=== PATIENT | male | born 1965 | race Hispanic/Latino ===

== ENCOUNTER → 2020-10-14 | Outpatient (CLI) | payer OTHER | LOC: WCC 12:55 | PROVIDERS: ATTEND Family Medicine Adult Medicine | DX: E11.42 Type 2 diabetes mellitus with diabetic polyneuropathy (principal); Y83.8 Other surgical procedures as the cause of abnormal reaction of the patient, or of later complication, without mention of misadventure at the time of the procedure; S21.201A Unspecified open wound of right back wall of thorax without penetration into thoracic cavity, initial encounter; L02.232 Carbuncle of back [any part, except buttock and flank]; R60.0 Localized edema; I10 Essential (primary) hypertension; H54.8 Legal blindness, as defined in USA; E78.5 Hyperlipidemia, unspecified | CPT/HCPCS: 36415; 82948 ==

== ENCOUNTER → 2020-10-22 | Outpatient (CLI) | payer OTHER | LOC: RAD 09:22 | PROVIDERS: ATTEND Family Medicine Adult Medicine | DX: R60.0 Localized edema (principal); I87.2 Venous insufficiency (chronic) (peripheral); I73.9 Peripheral vascular disease, unspecified; I87.1 Compression of vein | CPT/HCPCS: 93925; 93970 ==

== ENCOUNTER → 2020-10-26 | Outpatient (CLI) | payer OTHER ==
[~2020-10-26] MED LIST: LIDOCAINE VISC 2% SOLN 15 ML UDC ONE
== END ==
LOC: WCC 10:11
PROVIDERS: ATTEND Family Medicine Adult Medicine
DX: E11.42 Type 2 diabetes mellitus with diabetic polyneuropathy (principal); Y83.8 Other surgical procedures as the cause of abnormal reaction of the patient, or of later complication, without mention of misadventure at the time of the procedure; S21.201A Unspecified open wound of right back wall of thorax without penetration into thoracic cavity, initial encounter; I87.2 Venous insufficiency (chronic) (peripheral); I79.8 Other disorders of arteries, arterioles and capillaries in diseases classified elsewhere; R60.0 Localized edema; L02.232 Carbuncle of back [any part, except buttock and flank]; I10 Essential (primary) hypertension; H54.8 Legal blindness, as defined in USA; E78.5 Hyperlipidemia, unspecified
CPT/HCPCS: 36415; 82948

== ENCOUNTER → 2020-10-29 | Outpatient (CLI) | payer OTHER | LOC: WCC 13:35 | PROVIDERS: ATTEND Family Medicine Adult Medicine | DX: E11.42 Type 2 diabetes mellitus with diabetic polyneuropathy (principal); Y83.8 Other surgical procedures as the cause of abnormal reaction of the patient, or of later complication, without mention of misadventure at the time of the procedure; R60.0 Localized edema; S21.201A Unspecified open wound of right back wall of thorax without penetration into thoracic cavity, initial encounter; I87.2 Venous insufficiency (chronic) (peripheral); I79.8 Other disorders of arteries, arterioles and capillaries in diseases classified elsewhere; L02.232 Carbuncle of back [any part, except buttock and flank]; H54.8 Legal blindness, as defined in USA; I10 Essential (primary) hypertension; E78.5 Hyperlipidemia, unspecified ==

== ENCOUNTER → 2020-11-02 | Outpatient (CLI) | payer OTHER | LOC: WCC 08:52 | PROVIDERS: ATTEND Family Medicine Adult Medicine | DX: E11.42 Type 2 diabetes mellitus with diabetic polyneuropathy (principal); Y83.8 Other surgical procedures as the cause of abnormal reaction of the patient, or of later complication, without mention of misadventure at the time of the procedure; S21.201A Unspecified open wound of right back wall of thorax without penetration into thoracic cavity, initial encounter; I79.8 Other disorders of arteries, arterioles and capillaries in diseases classified elsewhere; I87.2 Venous insufficiency (chronic) (peripheral); R60.0 Localized edema; L02.232 Carbuncle of back [any part, except buttock and flank]; I10 Essential (primary) hypertension; H54.8 Legal blindness, as defined in USA; E78.5 Hyperlipidemia, unspecified ==

== ENCOUNTER → 2020-11-05 | Outpatient (CLI) | payer OTHER | LOC: WCC 11:29 | PROVIDERS: ATTEND Family Medicine Adult Medicine | DX: E11.42 Type 2 diabetes mellitus with diabetic polyneuropathy (principal); Y83.8 Other surgical procedures as the cause of abnormal reaction of the patient, or of later complication, without mention of misadventure at the time of the procedure; S21.201A Unspecified open wound of right back wall of thorax without penetration into thoracic cavity, initial encounter; I79.8 Other disorders of arteries, arterioles and capillaries in diseases classified elsewhere; I87.2 Venous insufficiency (chronic) (peripheral); L02.232 Carbuncle of back [any part, except buttock and flank]; I10 Essential (primary) hypertension; H54.8 Legal blindness, as defined in USA; E78.5 Hyperlipidemia, unspecified ==

== ENCOUNTER → 2020-11-09 | Outpatient (CLI) | payer OTHER | LOC: WCC 08:50 | PROVIDERS: ATTEND Family Medicine Adult Medicine | DX: E11.42 Type 2 diabetes mellitus with diabetic polyneuropathy (principal); Y83.8 Other surgical procedures as the cause of abnormal reaction of the patient, or of later complication, without mention of misadventure at the time of the procedure; S21.201A Unspecified open wound of right back wall of thorax without penetration into thoracic cavity, initial encounter; I87.2 Venous insufficiency (chronic) (peripheral); L02.232 Carbuncle of back [any part, except buttock and flank]; I79.8 Other disorders of arteries, arterioles and capillaries in diseases classified elsewhere; I10 Essential (primary) hypertension; H54.8 Legal blindness, as defined in USA; E78.5 Hyperlipidemia, unspecified ==

== ENCOUNTER → 2020-11-12 | Outpatient (CLI) | payer OTHER | LOC: WCC 14:34 | PROVIDERS: ATTEND Family Medicine Adult Medicine | DX: E11.42 Type 2 diabetes mellitus with diabetic polyneuropathy (principal); Y83.8 Other surgical procedures as the cause of abnormal reaction of the patient, or of later complication, without mention of misadventure at the time of the procedure; S21.201A Unspecified open wound of right back wall of thorax without penetration into thoracic cavity, initial encounter; I87.2 Venous insufficiency (chronic) (peripheral); I79.8 Other disorders of arteries, arterioles and capillaries in diseases classified elsewhere; L02.232 Carbuncle of back [any part, except buttock and flank]; I10 Essential (primary) hypertension; H54.8 Legal blindness, as defined in USA; E78.5 Hyperlipidemia, unspecified ==

== ENCOUNTER → 2020-11-16 | Outpatient (CLI) | payer OTHER | LOC: WCC 10:19 | PROVIDERS: ATTEND Family Medicine Adult Medicine | DX: E11.42 Type 2 diabetes mellitus with diabetic polyneuropathy (principal); Y83.8 Other surgical procedures as the cause of abnormal reaction of the patient, or of later complication, without mention of misadventure at the time of the procedure; S21.201A Unspecified open wound of right back wall of thorax without penetration into thoracic cavity, initial encounter; I79.8 Other disorders of arteries, arterioles and capillaries in diseases classified elsewhere; I87.2 Venous insufficiency (chronic) (peripheral); L02.232 Carbuncle of back [any part, except buttock and flank]; I10 Essential (primary) hypertension; H54.8 Legal blindness, as defined in USA; E78.5 Hyperlipidemia, unspecified ==

== ENCOUNTER → 2020-11-19 | Outpatient (CLI) | payer OTHER | LOC: WCC 15:32 | PROVIDERS: ATTEND Family Medicine Adult Medicine | DX: E11.42 Type 2 diabetes mellitus with diabetic polyneuropathy (principal); Y83.8 Other surgical procedures as the cause of abnormal reaction of the patient, or of later complication, without mention of misadventure at the time of the procedure; S21.201A Unspecified open wound of right back wall of thorax without penetration into thoracic cavity, initial encounter; I87.2 Venous insufficiency (chronic) (peripheral); I79.8 Other disorders of arteries, arterioles and capillaries in diseases classified elsewhere; L02.232 Carbuncle of back [any part, except buttock and flank]; I10 Essential (primary) hypertension; H54.8 Legal blindness, as defined in USA; E78.5 Hyperlipidemia, unspecified ==

== ENCOUNTER → 2020-11-23 | Outpatient (CLI) | payer OTHER | LOC: WCC 10:43 | PROVIDERS: ATTEND Family Medicine Adult Medicine | DX: E11.42 Type 2 diabetes mellitus with diabetic polyneuropathy (principal); Y83.8 Other surgical procedures as the cause of abnormal reaction of the patient, or of later complication, without mention of misadventure at the time of the procedure; S21.201A Unspecified open wound of right back wall of thorax without penetration into thoracic cavity, initial encounter; I87.2 Venous insufficiency (chronic) (peripheral); I79.8 Other disorders of arteries, arterioles and capillaries in diseases classified elsewhere; L02.232 Carbuncle of back [any part, except buttock and flank]; I10 Essential (primary) hypertension; E78.5 Hyperlipidemia, unspecified; H54.8 Legal blindness, as defined in USA ==

== ENCOUNTER → 2020-11-26 | Outpatient (CLI) | payer OTHER | LOC: WCC 13:29 | PROVIDERS: ATTEND Family Medicine Adult Medicine | DX: E11.42 Type 2 diabetes mellitus with diabetic polyneuropathy (principal); Y83.8 Other surgical procedures as the cause of abnormal reaction of the patient, or of later complication, without mention of misadventure at the time of the procedure; S21.201A Unspecified open wound of right back wall of thorax without penetration into thoracic cavity, initial encounter; I87.2 Venous insufficiency (chronic) (peripheral); I79.8 Other disorders of arteries, arterioles and capillaries in diseases classified elsewhere; L02.232 Carbuncle of back [any part, except buttock and flank]; I10 Essential (primary) hypertension; E78.5 Hyperlipidemia, unspecified; H54.8 Legal blindness, as defined in USA ==

== ENCOUNTER → 2020-11-30 | Outpatient (CLI) | payer OTHER | LOC: WCC 09:59 | PROVIDERS: ATTEND Family Medicine Adult Medicine | DX: E11.42 Type 2 diabetes mellitus with diabetic polyneuropathy (principal); Y83.8 Other surgical procedures as the cause of abnormal reaction of the patient, or of later complication, without mention of misadventure at the time of the procedure; S21.201A Unspecified open wound of right back wall of thorax without penetration into thoracic cavity, initial encounter; I79.8 Other disorders of arteries, arterioles and capillaries in diseases classified elsewhere; I87.2 Venous insufficiency (chronic) (peripheral); L02.232 Carbuncle of back [any part, except buttock and flank]; I10 Essential (primary) hypertension; E78.5 Hyperlipidemia, unspecified; H54.8 Legal blindness, as defined in USA | CPT/HCPCS: 87071; 87075; 87186; 87205 ==

== ENCOUNTER → 2020-12-03 | Outpatient (CLI) | payer OTHER | LOC: WCC 11:06 | PROVIDERS: ATTEND Family Medicine Adult Medicine | DX: S21.201A Unspecified open wound of right back wall of thorax without penetration into thoracic cavity, initial encounter (principal); Y83.8 Other surgical procedures as the cause of abnormal reaction of the patient, or of later complication, without mention of misadventure at the time of the procedure; E11.42 Type 2 diabetes mellitus with diabetic polyneuropathy; I87.2 Venous insufficiency (chronic) (peripheral); I79.8 Other disorders of arteries, arterioles and capillaries in diseases classified elsewhere; L02.232 Carbuncle of back [any part, except buttock and flank]; I10 Essential (primary) hypertension; E78.5 Hyperlipidemia, unspecified; H54.8 Legal blindness, as defined in USA ==

== ENCOUNTER → 2020-12-07 | Outpatient (CLI) | payer OTHER | LOC: WCC 09:34 | PROVIDERS: ATTEND Family Medicine Adult Medicine | DX: E11.42 Type 2 diabetes mellitus with diabetic polyneuropathy (principal); Y83.8 Other surgical procedures as the cause of abnormal reaction of the patient, or of later complication, without mention of misadventure at the time of the procedure; S21.201A Unspecified open wound of right back wall of thorax without penetration into thoracic cavity, initial encounter; I87.2 Venous insufficiency (chronic) (peripheral); I79.8 Other disorders of arteries, arterioles and capillaries in diseases classified elsewhere; L02.232 Carbuncle of back [any part, except buttock and flank]; B96.89 Other specified bacterial agents as the cause of diseases classified elsewhere; I10 Essential (primary) hypertension; E78.5 Hyperlipidemia, unspecified; H54.8 Legal blindness, as defined in USA ==

== ENCOUNTER → 2020-12-10 | Outpatient (CLI) | payer OTHER | LOC: WCC 09:18 | PROVIDERS: ATTEND Family Medicine Adult Medicine | DX: E11.42 Type 2 diabetes mellitus with diabetic polyneuropathy (principal); Y83.8 Other surgical procedures as the cause of abnormal reaction of the patient, or of later complication, without mention of misadventure at the time of the procedure; S21.201A Unspecified open wound of right back wall of thorax without penetration into thoracic cavity, initial encounter; I87.2 Venous insufficiency (chronic) (peripheral); I79.8 Other disorders of arteries, arterioles and capillaries in diseases classified elsewhere; I10 Essential (primary) hypertension; E78.5 Hyperlipidemia, unspecified; L02.232 Carbuncle of back [any part, except buttock and flank]; B96.89 Other specified bacterial agents as the cause of diseases classified elsewhere; H54.8 Legal blindness, as defined in USA ==

== ENCOUNTER → 2020-12-14 | Outpatient (CLI) | payer OTHER | LOC: WCC 09:56 | PROVIDERS: ATTEND Family Medicine Adult Medicine | DX: E11.42 Type 2 diabetes mellitus with diabetic polyneuropathy (principal); Y83.8 Other surgical procedures as the cause of abnormal reaction of the patient, or of later complication, without mention of misadventure at the time of the procedure; S21.201A Unspecified open wound of right back wall of thorax without penetration into thoracic cavity, initial encounter; I87.2 Venous insufficiency (chronic) (peripheral); I79.8 Other disorders of arteries, arterioles and capillaries in diseases classified elsewhere; L02.232 Carbuncle of back [any part, except buttock and flank]; B96.89 Other specified bacterial agents as the cause of diseases classified elsewhere; I10 Essential (primary) hypertension; E78.5 Hyperlipidemia, unspecified; H54.8 Legal blindness, as defined in USA ==

== ENCOUNTER → 2020-12-17 | Outpatient (CLI) | payer OTHER | LOC: WCC 09:15 | PROVIDERS: ATTEND Family Medicine Adult Medicine | DX: E11.42 Type 2 diabetes mellitus with diabetic polyneuropathy (principal); Y83.8 Other surgical procedures as the cause of abnormal reaction of the patient, or of later complication, without mention of misadventure at the time of the procedure; S21.201A Unspecified open wound of right back wall of thorax without penetration into thoracic cavity, initial encounter; I79.8 Other disorders of arteries, arterioles and capillaries in diseases classified elsewhere; I87.2 Venous insufficiency (chronic) (peripheral); L02.232 Carbuncle of back [any part, except buttock and flank]; I10 Essential (primary) hypertension; E78.5 Hyperlipidemia, unspecified; B96.89 Other specified bacterial agents as the cause of diseases classified elsewhere; H54.8 Legal blindness, as defined in USA ==

== ENCOUNTER → 2020-12-21 | Outpatient (CLI) | payer OTHER | LOC: WCC 09:25 | PROVIDERS: ATTEND Family Medicine Adult Medicine | DX: E11.42 Type 2 diabetes mellitus with diabetic polyneuropathy (principal); Y83.8 Other surgical procedures as the cause of abnormal reaction of the patient, or of later complication, without mention of misadventure at the time of the procedure; S21.201A Unspecified open wound of right back wall of thorax without penetration into thoracic cavity, initial encounter; I79.8 Other disorders of arteries, arterioles and capillaries in diseases classified elsewhere; I87.2 Venous insufficiency (chronic) (peripheral); L02.232 Carbuncle of back [any part, except buttock and flank]; I10 Essential (primary) hypertension; B96.89 Other specified bacterial agents as the cause of diseases classified elsewhere; H54.8 Legal blindness, as defined in USA; E78.5 Hyperlipidemia, unspecified ==

== ENCOUNTER → 2020-12-24 | Outpatient (CLI) | payer OTHER | LOC: WCC 09:50 | PROVIDERS: ATTEND Family Medicine Adult Medicine | DX: E11.42 Type 2 diabetes mellitus with diabetic polyneuropathy (principal); Y83.8 Other surgical procedures as the cause of abnormal reaction of the patient, or of later complication, without mention of misadventure at the time of the procedure; S21.201A Unspecified open wound of right back wall of thorax without penetration into thoracic cavity, initial encounter; I79.8 Other disorders of arteries, arterioles and capillaries in diseases classified elsewhere; I87.2 Venous insufficiency (chronic) (peripheral); L02.232 Carbuncle of back [any part, except buttock and flank]; B96.89 Other specified bacterial agents as the cause of diseases classified elsewhere; I10 Essential (primary) hypertension; E78.5 Hyperlipidemia, unspecified; H54.8 Legal blindness, as defined in USA ==

== ENCOUNTER → 2020-12-28 | Outpatient (CLI) | payer OTHER | LOC: WCC 11:43 | PROVIDERS: ATTEND Family Medicine Adult Medicine | DX: E11.42 Type 2 diabetes mellitus with diabetic polyneuropathy (principal); Y83.8 Other surgical procedures as the cause of abnormal reaction of the patient, or of later complication, without mention of misadventure at the time of the procedure; S21.201A Unspecified open wound of right back wall of thorax without penetration into thoracic cavity, initial encounter; I79.8 Other disorders of arteries, arterioles and capillaries in diseases classified elsewhere; I87.2 Venous insufficiency (chronic) (peripheral); L02.232 Carbuncle of back [any part, except buttock and flank]; I10 Essential (primary) hypertension; E78.5 Hyperlipidemia, unspecified; H54.8 Legal blindness, as defined in USA; B96.89 Other specified bacterial agents as the cause of diseases classified elsewhere ==

== ENCOUNTER → 2020-12-31 | Outpatient (CLI) | payer OTHER | LOC: WCC 09:26 | PROVIDERS: ATTEND Family Medicine Adult Medicine | DX: E11.42 Type 2 diabetes mellitus with diabetic polyneuropathy (principal); Y83.8 Other surgical procedures as the cause of abnormal reaction of the patient, or of later complication, without mention of misadventure at the time of the procedure; S21.201A Unspecified open wound of right back wall of thorax without penetration into thoracic cavity, initial encounter; I79.8 Other disorders of arteries, arterioles and capillaries in diseases classified elsewhere; I87.2 Venous insufficiency (chronic) (peripheral); L02.232 Carbuncle of back [any part, except buttock and flank]; I10 Essential (primary) hypertension; E78.5 Hyperlipidemia, unspecified; B96.89 Other specified bacterial agents as the cause of diseases classified elsewhere; H54.8 Legal blindness, as defined in USA ==

== ENCOUNTER → 2021-01-06 | Outpatient (CLI) | payer OTHER | LOC: WCC 13:44 | PROVIDERS: ATTEND Family Medicine Adult Medicine | DX: E11.42 Type 2 diabetes mellitus with diabetic polyneuropathy (principal); Y83.8 Other surgical procedures as the cause of abnormal reaction of the patient, or of later complication, without mention of misadventure at the time of the procedure; S21.201A Unspecified open wound of right back wall of thorax without penetration into thoracic cavity, initial encounter; I79.8 Other disorders of arteries, arterioles and capillaries in diseases classified elsewhere; I87.2 Venous insufficiency (chronic) (peripheral); L02.232 Carbuncle of back [any part, except buttock and flank]; I10 Essential (primary) hypertension; E78.5 Hyperlipidemia, unspecified; H54.8 Legal blindness, as defined in USA; B96.89 Other specified bacterial agents as the cause of diseases classified elsewhere ==

== ENCOUNTER → 2021-01-11 | Outpatient (CLI) | payer OTHER | LOC: WCC 10:29 | PROVIDERS: ATTEND Family Medicine Adult Medicine | DX: E11.42 Type 2 diabetes mellitus with diabetic polyneuropathy (principal); Y83.8 Other surgical procedures as the cause of abnormal reaction of the patient, or of later complication, without mention of misadventure at the time of the procedure; S21.201A Unspecified open wound of right back wall of thorax without penetration into thoracic cavity, initial encounter; I87.2 Venous insufficiency (chronic) (peripheral); I79.8 Other disorders of arteries, arterioles and capillaries in diseases classified elsewhere; L02.232 Carbuncle of back [any part, except buttock and flank]; I10 Essential (primary) hypertension; E78.5 Hyperlipidemia, unspecified; B96.89 Other specified bacterial agents as the cause of diseases classified elsewhere; H54.8 Legal blindness, as defined in USA ==

== ENCOUNTER → 2021-01-14 | Outpatient (CLI) | payer OTHER | LOC: WCC 14:41 | PROVIDERS: ATTEND Family Medicine Adult Medicine | DX: E11.42 Type 2 diabetes mellitus with diabetic polyneuropathy (principal); S21.201A Unspecified open wound of right back wall of thorax without penetration into thoracic cavity, initial encounter; Y83.8 Other surgical procedures as the cause of abnormal reaction of the patient, or of later complication, without mention of misadventure at the time of the procedure; I87.2 Venous insufficiency (chronic) (peripheral); I79.8 Other disorders of arteries, arterioles and capillaries in diseases classified elsewhere; L02.232 Carbuncle of back [any part, except buttock and flank]; I10 Essential (primary) hypertension; E78.5 Hyperlipidemia, unspecified; H54.8 Legal blindness, as defined in USA ==

== ENCOUNTER → 2021-01-18 | Outpatient (CLI) | payer OTHER | LOC: WCC 09:30 | PROVIDERS: ATTEND Family Medicine Adult Medicine | DX: E11.42 Type 2 diabetes mellitus with diabetic polyneuropathy (principal); Y83.8 Other surgical procedures as the cause of abnormal reaction of the patient, or of later complication, without mention of misadventure at the time of the procedure; S21.201A Unspecified open wound of right back wall of thorax without penetration into thoracic cavity, initial encounter; I87.2 Venous insufficiency (chronic) (peripheral); L02.232 Carbuncle of back [any part, except buttock and flank]; I79.8 Other disorders of arteries, arterioles and capillaries in diseases classified elsewhere; I10 Essential (primary) hypertension; E78.5 Hyperlipidemia, unspecified; H54.8 Legal blindness, as defined in USA ==

== ENCOUNTER → 2021-01-21 | Outpatient (CLI) | payer OTHER | LOC: WCC 09:14 | PROVIDERS: ATTEND Family Medicine Adult Medicine | DX: E11.42 Type 2 diabetes mellitus with diabetic polyneuropathy (principal); Y83.8 Other surgical procedures as the cause of abnormal reaction of the patient, or of later complication, without mention of misadventure at the time of the procedure; S21.201A Unspecified open wound of right back wall of thorax without penetration into thoracic cavity, initial encounter; I79.8 Other disorders of arteries, arterioles and capillaries in diseases classified elsewhere; I87.2 Venous insufficiency (chronic) (peripheral); L02.232 Carbuncle of back [any part, except buttock and flank]; I10 Essential (primary) hypertension; H54.8 Legal blindness, as defined in USA; E78.5 Hyperlipidemia, unspecified ==

== ENCOUNTER → 2021-01-25 | Outpatient (CLI) | payer OTHER | LOC: WCC 13:53 | PROVIDERS: ATTEND Family Medicine Adult Medicine | DX: E11.42 Type 2 diabetes mellitus with diabetic polyneuropathy (principal); Y83.8 Other surgical procedures as the cause of abnormal reaction of the patient, or of later complication, without mention of misadventure at the time of the procedure; S21.201A Unspecified open wound of right back wall of thorax without penetration into thoracic cavity, initial encounter; I87.2 Venous insufficiency (chronic) (peripheral); I79.8 Other disorders of arteries, arterioles and capillaries in diseases classified elsewhere; L02.232 Carbuncle of back [any part, except buttock and flank]; I10 Essential (primary) hypertension; E78.5 Hyperlipidemia, unspecified; H54.8 Legal blindness, as defined in USA; B96.89 Other specified bacterial agents as the cause of diseases classified elsewhere; Z85.05 Personal history of malignant neoplasm of liver; Z85.09 Personal history of malignant neoplasm of other digestive organs | CPT/HCPCS: 87071; 87075; 87205 ==

== ENCOUNTER → 2021-01-28 | Outpatient (CLI) | payer OTHER | LOC: WCC 11:32 | PROVIDERS: ATTEND Family Medicine Adult Medicine | DX: E11.42 Type 2 diabetes mellitus with diabetic polyneuropathy (principal); Y83.8 Other surgical procedures as the cause of abnormal reaction of the patient, or of later complication, without mention of misadventure at the time of the procedure; S21.201A Unspecified open wound of right back wall of thorax without penetration into thoracic cavity, initial encounter; I87.2 Venous insufficiency (chronic) (peripheral); I79.8 Other disorders of arteries, arterioles and capillaries in diseases classified elsewhere; L02.232 Carbuncle of back [any part, except buttock and flank]; I10 Essential (primary) hypertension; E78.5 Hyperlipidemia, unspecified; B96.89 Other specified bacterial agents as the cause of diseases classified elsewhere; H54.8 Legal blindness, as defined in USA; Z85.09 Personal history of malignant neoplasm of other digestive organs; Z85.05 Personal history of malignant neoplasm of liver ==

== ENCOUNTER → 2021-02-01 | Outpatient (CLI) | payer OTHER | LOC: WCC 09:10 | PROVIDERS: ATTEND Family Medicine Adult Medicine | DX: E11.42 Type 2 diabetes mellitus with diabetic polyneuropathy (principal); Y83.8 Other surgical procedures as the cause of abnormal reaction of the patient, or of later complication, without mention of misadventure at the time of the procedure; S21.201A Unspecified open wound of right back wall of thorax without penetration into thoracic cavity, initial encounter; I87.2 Venous insufficiency (chronic) (peripheral); I79.8 Other disorders of arteries, arterioles and capillaries in diseases classified elsewhere; L02.232 Carbuncle of back [any part, except buttock and flank]; I10 Essential (primary) hypertension; E78.5 Hyperlipidemia, unspecified; H54.8 Legal blindness, as defined in USA; B96.89 Other specified bacterial agents as the cause of diseases classified elsewhere; B95.4 Other streptococcus as the cause of diseases classified elsewhere; Z85.05 Personal history of malignant neoplasm of liver; Z85.09 Personal history of malignant neoplasm of other digestive organs ==

== ENCOUNTER → 2021-02-04 | Outpatient (CLI) | payer OTHER | LOC: WCC 09:35 | PROVIDERS: ATTEND Family Medicine Adult Medicine | DX: E11.42 Type 2 diabetes mellitus with diabetic polyneuropathy (principal); Y83.8 Other surgical procedures as the cause of abnormal reaction of the patient, or of later complication, without mention of misadventure at the time of the procedure; S21.201A Unspecified open wound of right back wall of thorax without penetration into thoracic cavity, initial encounter; I87.2 Venous insufficiency (chronic) (peripheral); I79.8 Other disorders of arteries, arterioles and capillaries in diseases classified elsewhere; B95.4 Other streptococcus as the cause of diseases classified elsewhere; L02.232 Carbuncle of back [any part, except buttock and flank]; I10 Essential (primary) hypertension; E78.5 Hyperlipidemia, unspecified; H54.8 Legal blindness, as defined in USA; Z85.09 Personal history of malignant neoplasm of other digestive organs; Z85.05 Personal history of malignant neoplasm of liver ==

== ENCOUNTER → 2021-02-08 | Outpatient (CLI) | payer OTHER | LOC: WCC 14:53 | PROVIDERS: ATTEND Family Medicine Adult Medicine | DX: E11.42 Type 2 diabetes mellitus with diabetic polyneuropathy (principal); Y83.8 Other surgical procedures as the cause of abnormal reaction of the patient, or of later complication, without mention of misadventure at the time of the procedure; S21.201A Unspecified open wound of right back wall of thorax without penetration into thoracic cavity, initial encounter; I87.2 Venous insufficiency (chronic) (peripheral); I79.8 Other disorders of arteries, arterioles and capillaries in diseases classified elsewhere; L02.232 Carbuncle of back [any part, except buttock and flank]; I10 Essential (primary) hypertension; E78.5 Hyperlipidemia, unspecified; B95.4 Other streptococcus as the cause of diseases classified elsewhere; H54.8 Legal blindness, as defined in USA; Z85.05 Personal history of malignant neoplasm of liver; Z85.09 Personal history of malignant neoplasm of other digestive organs ==

== ENCOUNTER → 2021-02-11 | Outpatient (CLI) | payer OTHER | LOC: WCC 09:53 | PROVIDERS: ATTEND Family Medicine Adult Medicine | DX: E11.42 Type 2 diabetes mellitus with diabetic polyneuropathy (principal); Y83.8 Other surgical procedures as the cause of abnormal reaction of the patient, or of later complication, without mention of misadventure at the time of the procedure; S21.201A Unspecified open wound of right back wall of thorax without penetration into thoracic cavity, initial encounter; I87.2 Venous insufficiency (chronic) (peripheral); I79.8 Other disorders of arteries, arterioles and capillaries in diseases classified elsewhere; L02.232 Carbuncle of back [any part, except buttock and flank]; E78.5 Hyperlipidemia, unspecified; B95.4 Other streptococcus as the cause of diseases classified elsewhere; I10 Essential (primary) hypertension; H54.8 Legal blindness, as defined in USA; Z85.09 Personal history of malignant neoplasm of other digestive organs; Z85.05 Personal history of malignant neoplasm of liver ==